=== PATIENT | female | born 1985 | race Hispanic/Latino ===

== ENCOUNTER 2021-09-30 12:00 | Inpatient (IN) | payer MEDICAID, OTHER, SELFPAY ==
[2021-09-29 10:00] LABS: Hemoglobin 10.7 g/dL (12.0-15.5); Mean Corpuscular Hemoglobin 27.9 pg (27.0-33.0); Mean Corpuscular Volume 82.2 fl (81.6-98.3); Mean Platelet Volume 11.2 fl (7.4-10.4); Platelet Count 242 10x3/uL (150-450); RBC Distribution Width 13.9 % (11.5-14.5); Red Blood Cell (RBC) Count 3.83 10x6/uL (3.90-5.03); White Blood Cell (WBC) Count 8.2 10x3/uL (3.5-10.5)
[2021-09-29 10:35] LABS: Hep B Surf Ag Non-Reactive S/CO (NonReactive); Syphilis Antibody Nonreactive (Nonreactive); Syphilis Antibody Index 0.04 S/CO (<1.00 Non-Reactive)
[2021-09-29 10:58] LABS: HBSAg Index 0.16 S/CO (0-0.99)
[2021-10-01 10:45] VITALS: BMI 34.9
[2021-10-01] MEDS ORDERED: Ondansetron PF 4 MG/2 ML Vial IVP PRN ×3 (11:01→16:37)
[2021-10-01] MEDS ORDERED: Docusate 100 MG CAP PO PRN (11:01)
[2021-10-01] MEDS ORDERED: Famotidine/PF 20 mg/2ml Vial SLOW IVP PRN (11:01)
[2021-10-01] MEDS ORDERED: Bicitra 30 ML UDCUP PO PRN (11:01)
[2021-10-01] MEDS ORDERED: Promethazine HCl 25 MG/ML VIAL IM PRN ×3 (11:01→16:37)
[2021-10-01] MEDS ORDERED: Acetaminophen 500 MG TAB PO PRN (11:01)
[2021-10-01] MEDS ORDERED: hydrALAZINE 20 MG/ML VIAL SLOW IVP PRN ×2 (11:01→16:37)
[2021-10-01] MEDS ORDERED: ceFAZolin 2 GM/Dextrose 50 ML 2 GM in Premix Bag 1 BAG IVPB SCH (11:15)
[2021-10-01] MEDS ORDERED: Lactated Ringer's 1,000 ML IV SCH (11:15)
[2021-10-01] MEDS ORDERED: Morphine PF 10 MG/10 ML VIAL ONE (11:31)
[2021-10-01] MEDS ORDERED: ePHEDrine Sulfate 50 MG/10 ML VIAL ONE (11:31)
[2021-10-01] MEDS ORDERED: PHENYLEPHRINE-NS 100 MCG/ML 10 ML SYRINGE ONE (11:32)
[2021-10-01] MEDS ORDERED: Ketorolac Tromethamine 30 MG/ML VIAL ONE (11:32)
[2021-10-01] MEDS ORDERED: Glycopyrrolate 0.2 MG/ML 5 ML SYRINGE ONE (11:32)
[2021-10-01] MEDS ORDERED: Phenylephrine 40 MG/NS 250 ML 250 ML ONE (11:32)
[2021-10-01] MEDS ORDERED: Oxytocin 10 UNITS/ML VIAL ONE (11:32)
[2021-10-01] MEDS ORDERED: Dexamethasone 4 mg/ml Vial ONE (11:32)
[2021-10-01] MEDS ORDERED: Ondansetron PF 4 MG/2 ML Vial ONE (11:32)
[2021-10-01 12:54] LABS: RapidComm Collect By NURSE; pH (Cord, venous) 7.322 (7.250-7.350)
[2021-10-01 12:57] LABS: RapidComm Collect By NURSE
[2021-10-01] MEDS ORDERED: diphenhydrAMINE 50 MG/ML VIAL ONE (13:26)
[2021-10-01] MEDS ORDERED: Ondansetron HCl/PF 4 MG/2 ML Vial IVP PRN (14:12)
[2021-10-01] MEDS ORDERED: Ketorolac Tromethamine 30 MG/ML VIAL IVP PRN (14:12)
[2021-10-01] MEDS ORDERED: Fentanyl 100 MCG/2 ML VIAL SLOW IVP PRN (14:12)
[2021-10-01] MEDS ORDERED: Moisturizing Cream (Eucerin) 113 GM JAR TOP PRN (14:12)
[2021-10-01] MEDS ORDERED: diphenhydrAMINE 50 MG/ML VIAL IVP PRN (14:12)
[2021-10-01] MEDS ORDERED: Naloxone HCl 0.4 mg/ml Vial IVP PRN ×2 (14:12)
[2021-10-01] MEDS ORDERED: Meperidine HCl/PF 25 MG/ML VIAL SLOW IVP PRN (14:12)
[2021-10-01] MEDS ORDERED: Promethazine HCl 25 MG SUPP PR PRN (14:12)
[2021-10-01] MEDS ORDERED: Naloxone HCl 0.4 mg/ml Vial IV PRN (14:12)
[2021-10-01] MEDS ORDERED: Communication Order-Pharmacy FS SCH (14:15)
[2021-10-01] MEDS ORDERED: Ketorolac Tromethamine 30 MG/ML VIAL IVP SCH (14:15)
[2021-10-01] MEDS ORDERED: diphenhydrAMINE 25 MG CAP PO PRN (16:37)
[2021-10-01] MEDS ORDERED: Simethicone Chewable 80 MG TAB PO PRN (16:37)
[2021-10-01] MEDS ORDERED: NS w/ Oxytocin 30 units 500 ML IV SCH (16:37)
[2021-10-01] MEDS ORDERED: Boostrix 0.5 ML (Tdap) VIAL IM ONE (16:37)
[2021-10-01] MEDS ORDERED: Misoprostol 200 MCG TAB PR PRN (16:37)
[2021-10-01] MEDS: Lactated Ringer's 1,000 ML IV SCH (19:10)
[2021-10-02] MEDS ORDERED: HYDROcodone/Acetaminophen 5/325 mg Tablet PO PRN (02:15)
[2021-10-02] MEDS: Docusate 100 MG CAP PO SCH ×3 (08:50→20:12)
[2021-10-02] MEDS: Prenatal Vitamin 1 TAB PO SCH (08:50)
[2021-10-02 11:10] LABS: Hemoglobin 10.2 g/dL (12.0-15.5)
[2021-10-02] MEDS: HYDROcodone/Acetaminophen 5/325 mg Tablet PO PRN ×2 (14:29→20:12)
[2021-10-02] MEDS: Lactated Ringer's 1,000 ML IV SCH ×4 (14:31→20:02)
[2021-10-02] MEDS: Ibuprofen 800 MG TAB PO SCH (20:13)
[2021-10-03] MEDS: Ibuprofen 800 MG TAB PO SCH ×2 (05:49→13:54)
[2021-10-03] MEDS: Prenatal Vitamin 1 TAB PO SCH ×2 (08:45→09:24)
[2021-10-03] MEDS: HYDROcodone/Acetaminophen 5/325 mg Tablet PO PRN (08:46)
[2021-10-03] MEDS: Docusate 100 MG CAP PO SCH ×2 (08:46→09:23)
[2021-10-03 10:39] LABS: #Eosinphils 0.1 10x3/uL (0.0-0.5); #Monocytes 0.6 10x3/uL (0.0-1.1); #Neutrophils 6.6 10x3/uL (1.5-8.4); %Basophils 0.2 % (0.0-2.0); %Lymphocytes 20.8 % (18.0-47.0); %Monocytes 6.5 % (0.0-10.0); %Neutrophils 70.8 % (40.0-75.0); Hemoglobin 9.6 g/dL (12.0-15.5); Mean Corpuscular Hemoglobin 27.7 pg (27.0-33.0); Mean Corpuscular Volume 83.9 fl (81.6-98.3); Mean Platelet Volume 11.2 fl (7.4-10.4); Platelet Count 257 10x3/uL (150-450); RBC Distribution Width 14.4 % (11.5-14.5); Red Blood Cell (RBC) Count 3.47 10x6/uL (3.90-5.03); White Blood Cell (WBC) Count 9.4 10x3/uL (3.5-10.5)
[2021-10-03] MEDS: Lactated Ringer's 1,000 ML IV SCH (17:27)
[2021-10-03 19:49] VITALS: BP 111/57; TEMP 98.3
== END 2021-10-03 19:53 | disposition home or self-care (01) | DRG 785 ==
LOC: CSHLD 10-01 10:17 → CSHPP 10-01 16:24
PROVIDERS: ADMIT Student in an Organized Health Care Education/Training Program; ATTEND Student in an Organized Health Care Education/Training Program
PROC: 10D00Z1 Extraction of Products of Conception, Low, Open Approach (ICD-10-PCS; principal; 2021-10-01)
PROC: 0UT70ZZ Resection of Bilateral Fallopian Tubes, Open Approach (ICD-10-PCS; 2021-10-01)
DX: O34.211 Maternal care for low transverse scar from previous cesarean delivery (principal); Z37.0 Single live birth; Z3A.39 39 weeks gestation of pregnancy; Z20.822 Contact with and (suspected) exposure to COVID-19; E66.9 Obesity, unspecified; D64.9 Anemia, unspecified; O99.02 Anemia complicating childbirth; O99.214 Obesity complicating childbirth; O32.4XX0 Maternal care for high head at term, not applicable or unspecified; Z80.41 Family history of malignant neoplasm of ovary; N83.8 Other noninflammatory disorders of ovary, fallopian tube and broad ligament; O99.892 Other specified diseases and conditions complicating childbirth; O34.13 Maternal care for benign tumor of corpus uteri, third trimester; D25.9 Leiomyoma of uterus, unspecified
CPT/HCPCS: 36415; 51702; 82805; 85014; 85018; 85025; 85027; 86780; 86850; 86900; 86901; 87340; 88307; J1100; J1200; J1885; J2274; J2405; J2590; J7120; U0003; U0005